=== PATIENT | male | born 1970 | race Caucasian/White ===

== ENCOUNTER 2018-07-10 15:59 | Emergency (ER) | payer BC ==
[~2018-07-10] VITALS: Ht 182.9 cm; Wt 113.0 kg
[2018-07-10] MEDS ORDERED: LISI-661 PO (16:27)
[2018-07-10] MEDS ORDERED: CYCLOBENZAPRINE HCL 10 MG TABLET PO ONE (16:45)
[2018-07-10] MEDS ORDERED: IBUPROFEN 600 MG TABLET PO ONE (16:45)
[2018-07-10 19:03] VITALS: BP 128/82
== END 2018-07-10 19:09 | disposition home or self-care (01) ==
LOC: EMS 15:59
DX: S80.11XA Contusion of right lower leg, initial encounter (principal); Z88.8 Allergy status to other drugs, medicaments and biological substances; Z79.899 Other long term (current) drug therapy; W19.XXXA Unspecified fall, initial encounter; Y93.89 Activity, other specified; Y92.89 Other specified places as the place of occurrence of the external cause; Y99.8 Other external cause status
CPT/HCPCS: 93971